=== PATIENT | female | born 1990 | race Caucasian/White ===

== ENCOUNTER → 2016-08-09 | Outpatient (CLI) | payer OTHER ==
[~2016-08-09] VITALS: Ht 168.9 cm; Wt 90.0 kg
[~2016-08-09] MED LIST: ADDERALL10 MG PO; ADIPEX-P37.5 MG PO; FASTIN30 MG PO; LEVORA-28 30 MC1 TA1 PO; MINASTRIN PO; SAXENDA6 MG/ML SQ; SYNTHROID0.175 MG PO; TROKEND50 PO; WELLBUTRIN XL150 MG PO
[2016-08-09 10:51] VITALS: BP 123/56; PULSE 100
[2016-08-09 11:10] VITALS: BP 123/56; PULSE 100
[2016-08-09 11:32] VITALS: BP 123/56; PULSE 100
== END ==
LOC: LIGHT 10:29
DX: E03.9 Hypothyroidism, unspecified (principal); E66.09 Other obesity due to excess calories; Z68.31 Body mass index [BMI] 31.0-31.9, adult; F90.8 Attention-deficit hyperactivity disorder, other type

== ENCOUNTER → 2016-09-27 | Outpatient (CLI) | payer OTHER ==
[~2016-09-27] VITALS: Ht 168.9 cm; Wt 90.5 kg
[2016-09-27 10:23] VITALS: BP 112/68; PULSE 71
== END ==
LOC: LIGHT 10:20
DX: E03.8 Other specified hypothyroidism (principal); E66.8 Other obesity; Z68.31 Body mass index [BMI] 31.0-31.9, adult; F90.8 Attention-deficit hyperactivity disorder, other type; Z90.49 Acquired absence of other specified parts of digestive tract

== ENCOUNTER → 2017-01-31 | Outpatient (CLI) | payer OTHER ==
[~2017-01-31] VITALS: Ht 168.9 cm; Wt 97.3 kg
[2017-01-31 11:31] VITALS: BP 100/60; PULSE 68
== END ==
LOC: LIGHT 11-15 10:16
DX: E03.9 Hypothyroidism, unspecified (principal); E66.9 Obesity, unspecified; Z68.34 Body mass index [BMI] 34.0-34.9, adult; Z71.3 Dietary counseling and surveillance; F90.9 Attention-deficit hyperactivity disorder, unspecified type

== ENCOUNTER → 2017-03-14 | Outpatient (REF) | LOC: WSOH 16:30 | DX: Z02.89 Encounter for other administrative examinations (principal) ==

== ENCOUNTER → 2017-03-28 | Outpatient (CLI) | payer OTHER ==
[~2017-03-28] VITALS: Ht 168.9 cm; Wt 98.9 kg
[2017-03-28 11:30] VITALS: BP 114/70; PULSE 68
== END ==
LOC: LIGHT 10:31
DX: E03.9 Hypothyroidism, unspecified (principal); E66.9 Obesity, unspecified; Z68.34 Body mass index [BMI] 34.0-34.9, adult; Z71.3 Dietary counseling and surveillance; F90.9 Attention-deficit hyperactivity disorder, unspecified type

== ENCOUNTER → 2017-04-25 | Outpatient (CLI) | payer OTHER ==
[~2017-04-25] VITALS: Ht 168.9 cm; Wt 100.0 kg
[~2017-04-25] MED LIST changes: +CONTRAVE1 TER PO
[2017-04-25 11:44] VITALS: BP 110/64; PULSE 84
== END ==
LOC: LIGHT 09:56
DX: E03.9 Hypothyroidism, unspecified (principal); E66.9 Obesity, unspecified; Z68.35 Body mass index [BMI] 35.0-35.9, adult; Z71.3 Dietary counseling and surveillance; F90.9 Attention-deficit hyperactivity disorder, unspecified type

== ENCOUNTER → 2017-05-23 | Outpatient (CLI) | payer OTHER ==
[~2017-05-23] VITALS: Ht 168.9 cm; Wt 104.1 kg
[2017-05-23 14:57] VITALS: BP 104/80; PULSE 84
== END ==
LOC: LIGHT 11:04
DX: E03.9 Hypothyroidism, unspecified (principal); E66.9 Obesity, unspecified; Z68.36 Body mass index [BMI] 36.0-36.9, adult; Z71.3 Dietary counseling and surveillance; F90.9 Attention-deficit hyperactivity disorder, unspecified type

== ENCOUNTER → 2017-09-12 | Outpatient (CLI) | payer OTHER ==
[~2017-09-12] VITALS: Ht 168.9 cm; Wt 111.8 kg
[2017-09-12 10:35] VITALS: BP 106/66; PULSE 64
== END ==
LOC: LIGHT 10:29
DX: E03.9 Hypothyroidism, unspecified (principal); E66.9 Obesity, unspecified; Z68.39 Body mass index [BMI] 39.0-39.9, adult; Z71.3 Dietary counseling and surveillance; F90.9 Attention-deficit hyperactivity disorder, unspecified type
CPT/HCPCS: G0463

== ENCOUNTER → 2017-10-10 | Outpatient (CLI) | payer OTHER ==
[~2017-10-10] VITALS: Ht 168.9 cm; Wt 115.4 kg
[2017-10-10 14:23] VITALS: BP 110/80; PULSE 72
== END ==
LOC: LIGHT 09:27
DX: E03.9 Hypothyroidism, unspecified (principal); E66.9 Obesity, unspecified; Z68.41 Body mass index [BMI] 40.0-44.9, adult; Z71.3 Dietary counseling and surveillance; F90.9 Attention-deficit hyperactivity disorder, unspecified type
CPT/HCPCS: G0463

== ENCOUNTER → 2017-11-21 | Outpatient (CLI) | payer OTHER ==
[~2017-11-21] VITALS: Ht 168.9 cm; Wt 115.2 kg
[2017-11-21 14:00] VITALS: BP 116/76; PULSE 100
== END ==
LOC: LIGHT 13:43
DX: E03.9 Hypothyroidism, unspecified (principal); E66.9 Obesity, unspecified; Z68.41 Body mass index [BMI] 40.0-44.9, adult; Z71.3 Dietary counseling and surveillance; F90.9 Attention-deficit hyperactivity disorder, unspecified type
CPT/HCPCS: G0463

== ENCOUNTER → 2018-01-02 | Outpatient (CLI) | payer OTHER ==
[~2018-01-02] VITALS: Ht 168.9 cm; Wt 116.8 kg
[2018-01-02 10:15] VITALS: BP 120/86; PULSE 84
== END ==
LOC: LIGHT 09:46
DX: E03.9 Hypothyroidism, unspecified (principal); E66.9 Obesity, unspecified; Z68.41 Body mass index [BMI] 40.0-44.9, adult; Z71.3 Dietary counseling and surveillance; F90.9 Attention-deficit hyperactivity disorder, unspecified type
CPT/HCPCS: G0463

== ENCOUNTER → 2018-04-07 | Outpatient (CLI) | payer OTHER | LOC: COL.RAD 13:30 | DX: E01.0 Iodine-deficiency related diffuse (endemic) goiter (principal) ==

== ENCOUNTER → 2019-02-23 | Outpatient (CLI) | payer OTHER | LOC: COL.PUL 07:22 | DX: Z87.01 Personal history of pneumonia (recurrent) (principal) ==

== ENCOUNTER → 2020-08-09 | Outpatient (CLI) | payer OTHER ==
[~2020-08-09] MED LIST changes: +LEXAPRO20 MG PO; +MOTRIN 800800 MG/TAB PO; +PERCOCET 325 MG1 TA2 PO; +PRENATAL TABLET PO; +SYNTHROID 0.10.15 MG PO; +SYNTHROID0.05 MG/TA PO; +TRANDATE 100MG100 MG PO
== END | disposition still patient (30) ==
LOC: ZCOL.LAB 02:24
DX: Z20.822 Contact with and (suspected) exposure to COVID-19 (principal)

== ENCOUNTER 2020-08-10 17:00 | Outpatient (CLI) | payer OTHER ==
[~2020-08-10] VITALS: Ht 170.2 cm; Wt 134.5 kg
[~2020-08-10 17:00] MED LIST changes: -LEXAPRO20 MG PO; -MOTRIN 800800 MG/TAB PO; -PERCOCET 325 MG1 TA2 PO; -PRENATAL TABLET PO; -SYNTHROID 0.10.15 MG PO; -SYNTHROID0.05 MG/TA PO; -TRANDATE 100MG100 MG PO
--- NOTE | 2020-08-10 17:05 | NUR ---
Patient ambulates to LR3 with spouse, FHR/TOCO monitors placed. Patient states she had not felt baby move all day and tried to drink a lot of water, snack, drink juice. Plan of care discussed. FHR reactive and Dr. Belcher notified and discharge orders received. 1748: Patient off monitors and given discharge instructions.
[2020-08-10] MEDS ORDERED: LEXAPRO20 MG PO (17:35)
[2020-08-10] MEDS ORDERED: PRENATAL TABLET PO (17:35)
[2020-08-10] MEDS ORDERED: TRANDATE 100MG100 MG PO (17:35)
[2020-08-10] MEDS ORDERED: SYNTHROID0.05 MG/TA PO (17:36)
[2020-08-10 17:48] VITALS: BP 138/84; PULSE 100
== END 2020-08-10 17:45 | disposition home or self-care (01) ==
LOC: LDRO 17:00 → LDR 17:01 → LDRO 17:01 → LDR 17:45 → LDRO 17:45
DX: O36.8130 Decreased fetal movements, third trimester, not applicable or unspecified (principal); Z3A.37 37 weeks gestation of pregnancy
CPT/HCPCS: OP

== ENCOUNTER 2020-08-13 06:39 | Inpatient (IN) | payer OTHER ==
[~2020-08-13] VITALS: Ht 170.2 cm; Wt 134.5 kg
[2020-08-13] VITALS (59 sets, daily range): BP systolic 104–160; BP diastolic 49–94; PULSE 70–118; TEMP 97.6–98.6
[~2020-08-13 06:39] MED LIST changes: +LEXAPRO20 MG PO; +PRENATAL TABLET PO; +SYNTHROID0.05 MG/TA PO; +TRANDATE 100MG100 MG PO
--- NOTE | 2020-08-13 07:05 | NUR ---
Patient ambulatory to LR5 with spouse, changed into gown, FHR/TOCO monitors placed. Patient here for induction at 38weeks due to PIH. Patient denies any regular contractions/leaking of fluid/vaginal bleeding/decreased movement. Plan of care discussed. 0725: IV placed in right hand per Bonnie STEWART, blood obtained and to lab, LR infusing. Assessment done/consents signed/ packe given. 0742: Pitocin induction discussed and patient agrees with plan. Pitocin started at 2mU/hr per protocol. 0800: Dr. Maguire at bedside assessing patient and FHR strip. 0805: SVE-1/70/-2 and AROM at this time with clear fluid noted. Orders to continue to increase pitocin. 1130: Patient on birthing ball and monitors readjusted.
[2020-08-13 07:45] LABS: BASO % 0.3 % (0.0-2.0); EOS # 0.1 (0.0-0.7); EOS % 0.8 % (0-4.0); GRAN # 7.8 (1.4-6.5); GRAN % 73.7 % (42.2-75.2); HEMOGLOBIN 10.9 g/dl (12.5-16.0); LYMPH # 1.9 (1.2-3.4); MEAN CELL VOLUME 90 fl (80.0-100.0); MEAN CORPUSCULAR HEMOGLOBIN 29 pg (27.0-31.0); MEAN CORPUSCULAR HGB CONC 33 g/dl (33.0-37.0); MEAN PLATELET VOLUME 9.2 fl (7.4-10.4); MONO # 0.7 (0.1-0.6); MONO % 6.2 % (1.7-9.3); PLATELET COUNT 318 K/mm3 (130-400); RED BLOOD COUNT 3.72 M/mm3 (4.10-5.30); REDCELL DISTRIBUTION WIDTH-CV 15.2 % (11.5-14.5)
[2020-08-13 07:49] LABS: HEMATOCRIT 33.3 % (37.0-47.0)
[2020-08-13 09:14] LABS: ALBUMIN 3.5 gm/dL (3.5-5.0); BILIRUBIN,TOTAL 0.4 mg/dL (0.0-1.0); CALCIUM 9.1 mg/dL (8.4-10.2); CREATININE, serum 0.69 (0.52-1.25); POTASSIUM 4.1 mmol/L (3.4-5.0); TOTAL PROTEIN 6.6 gm/dL (6.4-8.2)
--- NOTE | 2020-08-13 13:45 | NUR ---
Patient requests epidural and T. Brianna PROCEDURE TECH notified. 1400: Patient sitting up on edge of bed for epidural and T.Helemano PROCEDURE TECH at bedside. Difficulty tracing FHR due to maternal position. 1412: Test dose done and patient tolerates well. 1418: Patient repositioned and monitors adjusted. Plan of care discussed. 1525: Dr. Maguire at bedside and SVE 2-3/80/-2 and no new orders at this time. 1735: SVE- 2-3/80/-2 and patient in jered position. 1750: Dr. Maguire at bedside assessing patient and FHR strip. Plan of care discussed. 1755: Decision for at this time. Risks discussed and questions answered. Pitocin off at this time and patient prepped for surgery. 1815: Bedside report given to Gustavo STEWART and patient off monitors to OR.
[2020-08-13] MEDS ORDERED: PERCOCET 325 MG1 TA2 PO (18:12)
[2020-08-13] MEDS ORDERED: MOTRIN 800800 MG/TAB PO (18:12)
[2020-08-13] MEDS ORDERED: SYNTHROID 0.10.15 MG PO (21:04)
[2020-08-14] VITALS: BP 119/59; PULSE 96; TEMP 98.1
--- NOTE | 2020-08-14 04:40 | NUR ---
Pt up to the bathroom with standby assist and without complications. Ruffin removed. Nhung-care done. Pt ambulated back to bed. Plan of care reviewed. Call light within reach.
[2020-08-14 04:45] VITALS: BP 157/89; PULSE 90; TEMP 97.7
[2020-08-14 08:45] VITALS: BP 151/74; PULSE 81; TEMP 98
[2020-08-14 12:00] VITALS: BP 130/68; PULSE 88; TEMP 97.6
--- NOTE | 2020-08-14 18:30 | NUR ---
Report recieved. Resting in bed watching t.v. POC reviewed and whiteboard updated.
[2020-08-14 19:45] VITALS: BP 138/70; PULSE 85; TEMP 98.2
--- NOTE | 2020-08-15 07:00 | NUR ---
Ambulates to the nurses station. Visits with nurses. Denies any pain or needs at this time.
[2020-08-15 09:00] VITALS: BP 133/64; PULSE 97; TEMP 98.2
--- NOTE | 2020-08-15 09:00 | NUR ---
Rests in bed, alert. Request pain medication. Ibuprofen 800 mg, percocet 5/325 mg one given per request and as ordered.
--- NOTE | 2020-08-15 09:40 | NUR ---
Intial visit attempt; Family resting, Virtualization Architect left card of congratulations and God's blessings for the of their daughter. Virtualization Architect thanked family for choosing [facility].
--- NOTE | 2020-08-15 13:00 | NUR ---
Rests in chair, . Denies any needs at this time. Discharge instructions given, verbalizes understanding.
== END 2020-08-15 14:00 | disposition home or self-care (01) | DRG 788 ==
LOC: OB 06:39 → LDR 06:39 → OB 09:27
PROVIDERS: ADMIT Obstetrics & Gynecology
PROC: 10D00Z1 Extraction of Products of Conception, Low, Open Approach (ICD-10-PCS; principal; 2020-08-13)
DX: O13.4 Gestational [pregnancy-induced] hypertension without significant proteinuria, complicating childbirth (principal); O99.344 Other mental disorders complicating childbirth; O99.284 Endocrine, nutritional and metabolic diseases complicating childbirth; O99.214 Obesity complicating childbirth; O62.1 Secondary uterine inertia; F32.9 Major depressive disorder, single episode, unspecified; E66.9 Obesity, unspecified; E03.9 Hypothyroidism, unspecified; F90.9 Attention-deficit hyperactivity disorder, unspecified type; Z3A.38 38 weeks gestation of pregnancy; Z37.0 Single live birth; Z90.49 Acquired absence of other specified parts of digestive tract
CPT/HCPCS: J0690; J1100; J1885; J2210; J2590; J7120